=== PATIENT | female | born 1930 | race Hispanic/Latino ===

== ENCOUNTER → 2017-02-27 | Outpatient (CLI) | payer MEDICARE ==
[~2017-02-27] MED LIST: ATOR40TA71 PO; BUDE10.2 IH; CLON0.2T PO; ERGO500014 PO; ESTR42.53 VG; FERR325T22 PO; FLUT16H NS; FURO40TA5 PO; HYDR25 PO; LABE200T PO; LEVO112T7 PO; PANT40TA PO; POTA10TA11 PO; PRED20TA3 PO; SERT50TA12 PO; TRAM-355 PO; VALS320T15 PO
== END | disposition home or self-care (01) ==
LOC: RAH 10:30
PROVIDERS: ATTEND Internal Medicine
DX: R10.9 Unspecified abdominal pain (principal); R19.7 Diarrhea, unspecified; Z90.49 Acquired absence of other specified parts of digestive tract
CPT/HCPCS: 76700

== ENCOUNTER 2017-03-18 11:49 | Observation (INO) | payer MEDICARE ==
[~2017-03-18] VITALS: Ht 157.5 cm; Wt 64.9 kg
[2017-03-18] VITALS (9 sets, daily range): BP systolic 112–170; BP diastolic 53–88
[2017-03-18 13:06] LABS: BASOPHILS % (AUTO) 2.6 % (0.0-5.0); EOSINOPHILS % (AUTO) 5.3 % (0.0-8.0); HEMATOCRIT 27.4 % (36-48); LYMPHOCYTES % (AUTO) 19.8 % (21.0-51.0); MEAN CORPUSCULAR HEMOGLOBIN 31.5 pg (27.0-33.0); MEAN CORPUSCULAR HGB CONC 33.9 g/dL (32.0-36.0); MONOCYTES % (AUTO) 10.1 % (3.0-13.0); NEUTROPHILS % (AUTO) 62.2 % (40.0-77.0); PLATELET COUNT (AUTO) 244 K/uL (130-400); RED BLOOD CELL COUNT(AUTO) 2.95 MIL/uL (4.00-5.50); RED CELL DISTRIBUTION WIDTH 14.2 % (11.0-15.5); WHITE BLOOD COUNT (AUTO) 5.3 K/uL (4.8-10.8)
[2017-03-18 13:13] LABS: CREATININE 1.5 mg/dL (0.5-1.5); POTASSIUM 3.9 mmol/L (3.5-5.1)
[2017-03-18 13:15] LABS: INR 1.02 (0.85-1.15); PARTIAL THROMBOPLASTIN TIME 28.9 SEC (26.3-35.5); PROTHROMBIN TIME 10.7 SEC (9.6-11.6)
[2017-03-18] MEDS ORDERED: ERGO500014 PO (15:18)
[2017-03-18] MEDS ORDERED: FLUT16H NS (15:18)
[2017-03-18] MEDS ORDERED: FURO40TA5 PO (15:18)
[2017-03-18] MEDS ORDERED: LEVO112T7 PO (15:18)
[2017-03-18] MEDS ORDERED: ATOR40TA71 PO (15:18)
[2017-03-18] MEDS ORDERED: BUDE10.2 IH (15:18)
[2017-03-18] MEDS ORDERED: CLON0.2T PO (15:18)
[2017-03-18] MEDS ORDERED: LABE200T PO (15:18)
[2017-03-18] MEDS ORDERED: FERR325T22 PO (15:18)
[2017-03-18] MEDS ORDERED: VALS320T15 PO (15:18)
[2017-03-18] MEDS ORDERED: TRAM-355 PO (15:18)
[2017-03-18] MEDS ORDERED: ESTR42.53 VG (15:18)
[2017-03-18] MEDS ORDERED: SERT50TA12 PO (15:18)
[2017-03-18] MEDS ORDERED: POTA10TA11 PO (15:18)
[2017-03-18] MEDS ORDERED: ACETAMINOPHEN 325 MG TAB PO PRN (16:15)
[2017-03-18] MEDS ORDERED: ONDANSETRON HCL 4 MG/2 ML VIAL IVP PRN (16:15)
[2017-03-18] MEDS ORDERED: TRAMADOL /APAP 37.5MG/325MG TAB PO PRN (17:00)
[2017-03-18] MEDS: LABETALOL HCL 200 MG TABLET PO SCH (20:51)
[2017-03-18] MEDS: CLONIDINE HCL 0.2 MG TABLET PO SCH (20:52)
[2017-03-18] MEDS ORDERED: FERROUS SULFATE 325 MG TABLET.DR PO SCH (21:00)
[2017-03-18] MEDS ORDERED: SERTRALINE HCL 50 MG TABLET PO SCH (21:00)
[2017-03-18] MEDS ORDERED: ATORVASTATIN CALCIUM 40 MG TABLET PO SCH (21:00)
[2017-03-19] VITALS: BP_SYST 167; BP_SYST 170; BP_DIAS 64
[2017-03-19 04:00] VITALS: BP 170/64
[2017-03-19 05:08] LABS: HEMATOCRIT 22.5 % (36-48); MEAN CORPUSCULAR HEMOGLOBIN 33.1 pg (27.0-33.0); MEAN CORPUSCULAR VOLUME 91.9 fL (79-99); PLATELET COUNT (AUTO) 230 K/uL (130-400); RED BLOOD CELL COUNT(AUTO) 2.45 MIL/uL (4.00-5.50); RED CELL DISTRIBUTION WIDTH 14.5 % (11.0-15.5); WHITE BLOOD COUNT (AUTO) 5.9 K/uL (4.8-10.8)
[2017-03-19 05:19] LABS: CREATININE 1.6 mg/dL (0.5-1.5); POTASSIUM 3.4 mmol/L (3.5-5.1)
[2017-03-19 05:27] LABS: BAND NEUTROPHILS % (MANUAL) 6 % (0-2); BASOPHILS % (MANUAL) 1 % (0-2); EOSINOPHILS % (MANUAL) 4 % (1-6); LYMPHOCYTES % (MANUAL) 27 % (22-44); MONOCYTES % (MANUAL) 8 % (2-9); SEGMENTED NEUTROPHILS % 54 % (40-70)
[2017-03-19 05:28] LABS: MAN.DIFF COMMENT-IMPRESSION MANUAL DIFFERENTIAL; PLATELET MORPHOLOGY COMMENT ADEQUATE
[2017-03-19] MEDS ORDERED: LEVOTHYROXINE 112 MCG TABLET PO SCH (06:30)
[2017-03-19 07:31] VITALS: BP 150/77
[2017-03-19] MEDS ORDERED: FLUTICASONE PROPIONATE 50MCG/SPRAY 16 GM BOTTLE NS SCH (09:00)
[2017-03-19] MEDS ORDERED: FUROSEMIDE 40 MG TABLET PO SCH (09:00)
[2017-03-19] MEDS ORDERED: POTASSIUM CHLORIDE 10 MEQ/TAB.SA PO SCH (09:00)
[2017-03-19] MEDS ORDERED: LOSARTAN 100 MG TABLET PO SCH (09:00)
[2017-03-19] MEDS ORDERED: ESTRADIOL 1 GM VG SCH (09:00)
[2017-03-19] MEDS: CLONIDINE HCL 0.2 MG TABLET PO SCH ×2 (10:43→17:06)
[2017-03-19] MEDS: LABETALOL HCL 200 MG TABLET PO SCH (10:43)
[2017-03-19 11:16] VITALS: BP 147/58
[2017-03-19 16:31] VITALS: BP 168/62
[2017-03-19 17:06] VITALS: BP 168/52
[2017-03-25] MEDS ORDERED: ERGOCALCIFEROL (VITAMIN D2) 50,000 UNIT CAPSULE PO SCH (09:00)
== END 2017-03-19 18:02 | disposition home or self-care (01) ==
LOC: DAH 11:49 → RAH 11:49 → 4BH 13:35
PROVIDERS: ADMIT Internal Medicine Nephrology; ATTEND Internal Medicine Nephrology
DX: N28.9 Disorder of kidney and ureter, unspecified (principal); R80.9 Proteinuria, unspecified; D64.9 Anemia, unspecified; I10 Essential (primary) hypertension; E03.9 Hypothyroidism, unspecified; J44.9 Chronic obstructive pulmonary disease, unspecified; I25.10 Atherosclerotic heart disease of native coronary artery without angina pectoris; F32.9 Major depressive disorder, single episode, unspecified; Z95.0 Presence of cardiac pacemaker; Z90.710 Acquired absence of both cervix and uterus; K21.9 Gastro-esophageal reflux disease without esophagitis; F41.9 Anxiety disorder, unspecified
CPT/HCPCS: 36415 ×2; 50200; 80048 ×2; 85025 ×2; 85610; 85730; 92610; 96374; G0378 ×28

== ENCOUNTER → 2017-05-07 | Outpatient (CLI) | payer MEDICARE | END | disposition home or self-care (01) | LOC: RAH 11:05 | PROVIDERS: ATTEND Internal Medicine | DX: E04.1 Nontoxic single thyroid nodule (principal) | CPT/HCPCS: 76536 ==

== ENCOUNTER → 2017-05-12 | Outpatient (CLI) | payer MEDICARE | END | disposition home or self-care (01) | LOC: RAH 09:10 | PROVIDERS: ATTEND Internal Medicine | DX: R13.10 Dysphagia, unspecified (principal); M26.59 Other dentofacial functional abnormalities; K21.9 Gastro-esophageal reflux disease without esophagitis; I12.9 Hypertensive chronic kidney disease with stage 1 through stage 4 chronic kidney disease, or unspecified chronic kidney disease; N18.3 Chronic kidney disease, stage 3 (moderate) | CPT/HCPCS: G8996; G8997; G8998; 74230; 92611 ==

== ENCOUNTER 2017-06-04 15:43 | Inpatient (IN) | payer MEDICARE ==
[~2017-06-04] VITALS: Ht 157.5 cm; Wt 67.3 kg
[~2017-06-04 15:43] MED LIST changes: -HYDR25 PO; -LABE200T PO; +LABE200T5 PO; -PANT40TA PO; -PRED20TA3 PO; -VALS320T15 PO; +VALS320T16 PO
[2017-06-04 16:00] VITALS: BP 224/141
[2017-06-04] MEDS ORDERED: ONDANSETRON HCL 4 MG/2 ML VIAL IV PRN (17:00)
[2017-06-04] MEDS ORDERED: MAG HYDROX/AL HYDROX/SIMETH ES 30 ML SUSP UDCUP PO PRN (17:00)
[2017-06-04] MEDS ORDERED: DiphenhydrAMINE HCL 50 MG/ML VIAL IV PRN (17:00)
[2017-06-04] MEDS ORDERED: LIDOCAINE HCL 2% VISCOUS 30 ML, MAG HYDROX/AL HYDROX/SIMETH 30 ML, BELLADONNA-PHENOBARB... PO PRN ×3 (17:00)
[2017-06-04] MEDS ORDERED: DIPHENHYDRAMINE HCL 25 MG CAPSULE PO PRN (17:00)
[2017-06-04] MEDS ORDERED: ACETAMINOPHEN 325 MG TAB PO PRN (17:00)
[2017-06-04 17:03] LABS: HEMATOCRIT 34.3 % (36-48); MEAN CORPUSCULAR HEMOGLOBIN 33.3 pg (27.0-33.0); MEAN CORPUSCULAR HGB CONC 34.5 g/dL (32.0-36.0); MEAN CORPUSCULAR VOLUME 96.4 fL (79-99); NUCLEATED RED BLOOD CELLS 0.2 % (0.0-0.19); PLATELET COUNT (AUTO) 160 K/uL (130-400); RED BLOOD CELL COUNT(AUTO) 3.56 MIL/uL (4.00-5.50); RED CELL DISTRIBUTION WIDTH 16.5 % (11.0-15.5); WHITE BLOOD COUNT (AUTO) 11.9 K/uL (4.8-10.8)
[2017-06-04] MEDS ORDERED: ONDANSETRON HCL MDV 20ML 2 MG/ML VIAL IV PRN (17:12)
[2017-06-04 17:13] LABS: CREATININE 1.4 mg/dL (0.5-1.5); POTASSIUM 3.1 mmol/L (3.5-5.1)
[2017-06-04] MEDS ORDERED: GLUCAGON 1MG KIT 1 MG ML IM PRN (17:15)
[2017-06-04] MEDS ORDERED: DEXTROSE 50%-WATER 50 ML DISP.SYRIN IV PRN (17:15)
[2017-06-04] MEDS ORDERED: POTASSIUM CHLORIDE 20MEQ/100ML 100 ML IV PRN (17:15)
[2017-06-04] MEDS ORDERED: POTASSIUM CHLORIDE 10% ELIXIR 20 MEQ/15 ML UDCUP PO PRN (17:15)
[2017-06-04] MEDS ORDERED: LIDOCAINE HCL-MPF 1% 2ML VIAL IVP PRN (17:15)
[2017-06-04] MEDS ORDERED: LIDOCAINE HCL 2% VISCOUS 30 ML, MAG HYDROX/AL HYDROX/SIMETH 30 ML, DICYCLOMINE HCL 20 MG PO PRN ×3 (17:21)
[2017-06-04] MEDS ORDERED: COMPOUND PO MISCELLANEOUS 1 EACH MISC MISC PRN (17:30)
[2017-06-04] MEDS: SODIUM CHLORIDE 0.9% 1000ML 1,000 ML IV SCH (17:40)
[2017-06-04 17:42] LABS: ALBUMIN 1.9 g/dL (3.5-5.0); BILIRUBIN,DIRECT 0.1 mg/dL (0.0-0.3); BILIRUBIN,TOTAL 0.5 mg/dL (0.2-1.0); TOTAL PROTEIN, SERUM 5.1 g/dL (6.0-8.3)
[2017-06-04] MEDS ORDERED: LABETALOL 20 MG/4 ML DISP.SYRIN IV PRN ×2 (18:30→21:15)
[2017-06-04 19:46] VITALS: BP 226/149
[2017-06-04] MEDS: SERTRALINE HCL 50 MG TABLET PO SCH (20:27)
[2017-06-04] MEDS: FERROUS SULFATE 325 MG TABLET.DR PO SCH (20:27)
[2017-06-04] MEDS ORDERED: CLONIDINE HCL 0.2 MG TABLET PO SCH (21:00)
[2017-06-04] MEDS ORDERED: LABETALOL HCL 200 MG TABLET PO SCH (21:00)
[2017-06-04] MEDS ORDERED: HYDRALAZINE HCL 20 MG/ML VIAL IV PRN (21:15)
[2017-06-04] MEDS ORDERED: HYDRALAZINE HCL 25 MG TABLET PO PRN (21:15)
[2017-06-04] MEDS ORDERED: AMLODIPINE BESYLATE 5 MG TAB PO PRN (21:15)
[2017-06-04] MEDS: CLONIDINE HCL 0.2 MG TABLET PO SCH (21:21)
[2017-06-04] MEDS: LABETALOL HCL 200 MG TABLET PO SCH (21:22)
[2017-06-04 23:36] VITALS: BP 198/140
[2017-06-05] MEDS: SODIUM CHLORIDE 0.9% 1000ML 1,000 ML IV SCH ×2 (01:41→16:51)
[2017-06-05 03:54] VITALS: BP 160/80
[2017-06-05 06:17] LABS: HEMATOCRIT 32.9 % (36-48); MEAN CORPUSCULAR HEMOGLOBIN 32.5 pg (27.0-33.0); MEAN CORPUSCULAR HGB CONC 33.5 g/dL (32.0-36.0); MEAN CORPUSCULAR VOLUME 96.9 fL (79-99); NUCLEATED RED BLOOD CELLS 0.6 % (0.0-0.19); PLATELET COUNT (AUTO) 141 K/uL (130-400); RED BLOOD CELL COUNT(AUTO) 3.39 MIL/uL (4.00-5.50); RED CELL DISTRIBUTION WIDTH 16.4 % (11.0-15.5); WHITE BLOOD COUNT (AUTO) 8.2 K/uL (4.8-10.8)
[2017-06-05] MEDS: LEVOTHYROXINE 112 MCG TABLET PO SCH (06:34)
[2017-06-05] MEDS: MAG HYDROX/AL HYDROX/SIMETH ES 30 ML SUSP UDCUP PO SCH ×3 (06:35→18:49)
[2017-06-05] MEDS: PANTOPRAZOLE SODIUM 40 MG TABLET.DR PO SCH (06:39)
[2017-06-05 06:47] LABS: CREATININE 1.9 mg/dL (0.5-1.5); POTASSIUM 3.2 mmol/L (3.5-5.1)
[2017-06-05 07:00] VITALS: BP 159/75
[2017-06-05] MEDS: CLONIDINE HCL 0.2 MG TABLET PO SCH ×3 (08:18→20:29)
[2017-06-05] MEDS: LABETALOL HCL 200 MG TABLET PO SCH ×2 (08:19→20:32)
[2017-06-05] MEDS: POTASSIUM CHLORIDE 20 MEQ ERTAB PO PRN ×2 (08:20→11:41)
[2017-06-05] MEDS ORDERED: PRED20TA3 PO (09:56)
[2017-06-05 11:20] VITALS: BP 149/96
[2017-06-05] MEDS: PREDNISONE 20 MG TABLET PO SCH (11:41)
[2017-06-05 16:00] VITALS: BP 142/65
[2017-06-05 20:00] VITALS: BP 191/100
[2017-06-05] MEDS: SERTRALINE HCL 50 MG TABLET PO SCH (20:29)
[2017-06-05] MEDS: FERROUS SULFATE 325 MG TABLET.DR PO SCH (20:32)
[2017-06-06] VITALS: BP 160/74
[2017-06-06 04:00] VITALS: BP 160/86
[2017-06-06] MEDS: ACETAMINOPHEN 325 MG TAB PO PRN ×2 (04:10→22:20)
[2017-06-06] MEDS: SODIUM CHLORIDE 0.9% 1000ML 1,000 ML IV SCH ×2 (06:11→19:31)
[2017-06-06] MEDS: LEVOTHYROXINE 112 MCG TABLET PO SCH (06:18)
[2017-06-06] MEDS: MAG HYDROX/AL HYDROX/SIMETH ES 30 ML SUSP UDCUP PO SCH ×3 (06:18→18:44)
[2017-06-06] MEDS: PANTOPRAZOLE SODIUM 40 MG TABLET.DR PO SCH (06:18)
[2017-06-06 06:58] LABS: POTASSIUM 3.8 mmol/L (3.5-5.1)
[2017-06-06 08:06] VITALS: BP 152/91
[2017-06-06] MEDS: CLONIDINE HCL 0.2 MG TABLET PO SCH ×3 (09:00→21:04)
[2017-06-06] MEDS ORDERED: CLONIDINE HCL 0.1 MG TABLET ONE ×3 (09:18→14:16)
[2017-06-06] MEDS: PREDNISONE 20 MG TABLET PO SCH (09:52)
[2017-06-06] MEDS: LABETALOL HCL 200 MG TABLET PO SCH ×2 (09:52→21:04)
[2017-06-06 11:10] VITALS: BP 163/75
[2017-06-06 16:06] VITALS: BP 175/97
[2017-06-06 20:00] VITALS: BP 174/88
[2017-06-06] MEDS: FERROUS SULFATE 325 MG TABLET.DR PO SCH (21:04)
[2017-06-06] MEDS: SERTRALINE HCL 50 MG TABLET PO SCH (21:04)
[2017-06-07] VITALS: BP 166/85
[2017-06-07 04:00] VITALS: BP 168/92
[2017-06-07] MEDS: PANTOPRAZOLE SODIUM 40 MG TABLET.DR PO SCH (06:41)
[2017-06-07] MEDS: LEVOTHYROXINE 112 MCG TABLET PO SCH (06:41)
[2017-06-07] MEDS: MAG HYDROX/AL HYDROX/SIMETH ES 30 ML SUSP UDCUP PO SCH ×2 (06:41→11:09)
[2017-06-07 07:47] VITALS: BP 182/99
[2017-06-07] MEDS: PREDNISONE 20 MG TABLET PO SCH (09:05)
[2017-06-07] MEDS: LABETALOL HCL 200 MG TABLET PO SCH (09:05)
[2017-06-07] MEDS: CLONIDINE HCL 0.2 MG TABLET PO SCH ×2 (09:08→13:23)
[2017-06-07] MEDS: SODIUM CHLORIDE 0.9% 1000ML 1,000 ML IV SCH (09:12)
[2017-06-07 11:10] VITALS: BP 183/96
[2017-06-07] MEDS ORDERED: HYDR25 PO (12:32)
[2017-06-07] MEDS ORDERED: PANT40TA PO (12:33)
[2017-06-07] MEDS: HYDRALAZINE HCL 25 MG TABLET PO SCH ×2 (13:22→14:00)
[2017-06-07 13:23] VITALS: BP 183/96
== END 2017-06-07 16:13 | DRG 699 ==
LOC: EDH 15:43 → OBSVTOIN 15:44 → EDHIP 15:44 → 3CH 16:33
PROVIDERS: ADMIT Internal Medicine; ATTEND Internal Medicine
DX: N04.9 Nephrotic syndrome with unspecified morphologic changes (principal); I13.0 Hypertensive heart and chronic kidney disease with heart failure and stage 1 through stage 4 chronic kidney disease, or unspecified chronic kidney disease; D89.9 Disorder involving the immune mechanism, unspecified; E11.22 Type 2 diabetes mellitus with diabetic chronic kidney disease; I49.5 Sick sinus syndrome; I50.32 Chronic diastolic (congestive) heart failure; N18.3 Chronic kidney disease, stage 3 (moderate); N05.2 Unspecified nephritic syndrome with diffuse membranous glomerulonephritis; D63.8 Anemia in other chronic diseases classified elsewhere; E78.5 Hyperlipidemia, unspecified; F32.9 Major depressive disorder, single episode, unspecified; G47.33 Obstructive sleep apnea (adult) (pediatric); K21.9 Gastro-esophageal reflux disease without esophagitis; M19.90 Unspecified osteoarthritis, unspecified site; M81.0 Age-related osteoporosis without current pathological fracture; Z80.52 Family history of malignant neoplasm of bladder; Z82.49 Family history of ischemic heart disease and other diseases of the circulatory system; Z87.441 Personal history of nephrotic syndrome; Z90.710 Acquired absence of both cervix and uterus; Z95.0 Presence of cardiac pacemaker; Z88.2 Allergy status to sulfonamides; Z88.1 Allergy status to other antibiotic agents; Z91.041 Radiographic dye allergy status; Z90.49 Acquired absence of other specified parts of digestive tract; Z98.49 Cataract extraction status, unspecified eye
CPT/HCPCS: 36415; 71045; 74018; 80048; 80076; 82150; 83605; 85027; 87040; 87088; 97039; J0360

== ENCOUNTER → 2017-11-20 | Outpatient (CLI) | payer MEDICARE ==
[~2017-11-20] MED LIST changes: -FURO40TA5 PO; +HYDR25 PO; +PANT40TA PO; -POTA10TA11 PO; +PRED20TA3 PO; -TRAM-355 PO; -VALS320T16 PO
== END | disposition home or self-care (01) ==
LOC: RAH 13:13
PROVIDERS: ATTEND Internal Medicine
DX: E04.1 Nontoxic single thyroid nodule (principal)
CPT/HCPCS: 76536